=== PATIENT | female | born 1975 | race Caucasian/White ===

== ENCOUNTER 2021-08-07 21:32 | Emergency (ER) | payer BC ==
[~2021-08-07] VITALS: Ht 172.7 cm; Wt 79.4 kg
--- NOTE | 2021-08-07 22:50 | NUR ---
BIBS C/O RIGHT ANKLE PAIN S/P "TRIPPING ON CURB WITH HEELS". NO HEAD TRAUMA -KO. PT AXO x4 BREATHING EVEN AND UNLABORED. ALL V/S STABLE.
[2021-08-07] MEDS ORDERED: IBUPROFEN 600 MG TABLET PO ONE (23:00)
[2021-08-07] MEDS ORDERED: IBUPROFEN 600 MG TABLET ONE (23:00)
--- NOTE | 2021-08-07 23:09 | NUR ---
VALVE MAKER AT PT'S BEDSIDE
--- NOTE | 2021-08-07 23:41 | NUR ---
Patient discharged to home in stable condition. Written and verbal after care instructions given. Patient verbalizes understanding of instruction.
[2021-08-07 23:44] VITALS: BP 142/97
== END 2021-08-07 23:44 | disposition home or self-care (01) ==
LOC: ER 21:44
DX: S93.491A Sprain of other ligament of right ankle, initial encounter (principal); G43.909 Migraine, unspecified, not intractable, without status migrainosus; F90.9 Attention-deficit hyperactivity disorder, unspecified type; Z88.2 Allergy status to sulfonamides; Z88.1 Allergy status to other antibiotic agents; Z60.2 Problems related to living alone; X50.1XXA Overexertion from prolonged static or awkward postures, initial encounter; Y93.01 Activity, walking, marching and hiking; Y92.89 Other specified places as the place of occurrence of the external cause; Y99.8 Other external cause status
CPT/HCPCS: 73610-TC; 73630-TC